=== PATIENT | male | born 1975 | race African-American/Black ===

== ENCOUNTER 2018-03-10 14:37 | Emergency (ER) | payer BC ==
[2018-03-10 14:52] VITALS: BP 146/86; PULSE 75; TEMP 97.6; BMI 30.9
[2018-03-10] MEDS ORDERED: ACETAMINOPHEN 500 MG TABLET (FP) PO ONE (14:54)
[2018-03-10] MEDS ORDERED: ACETAMINOPHEN 500 MG TABLET (FP) ONE (14:57)
[2018-03-10] MEDS ORDERED: SODIUM CHLORIDE 1,000 ML IV STA (15:04)
--- NOTE | 2018-03-10 15:16 | PDOC ---
History of Present Illness - General Chief Complaint: Cold Symptoms Stated Complaint: COLD SYMPTOMS Time Seen by Provider: 03/10/18 14:41 History Source: Patient Exam Limitations: No Limitations - History of Present Illness Initial Comments: 03/10/18 15:13 Patient is a 42M with history of allergic rhinitis here today complaining of 3 weeks of fever, bodyaches, diffuse joint pain, and headache. Patient denies chest pain and shortness of breath. He states that he had a cough last week but that resolved. Patient works outside in maintenance, but denies tick bite, rash and any other insect bite. Patient states that he was seen in urgent care and diagnosed with allergic rhinitis. Denies toothache, sore throat, enlarged lymph nodes. Past History - Past Medical History Allergies/Adverse Reactions: Allergies Allergy/AdvReac Type Severity Reaction Status Date / Time No Known Allergies Allergy Unverified 01/07/14 22:58 Home Medications: Ambulatory Orders Cetirizine HCl [Zyrtec -] 1 tab PO DAILY 03/10/18 Fluticasone Prop 0.05% Nasal [Flonase -] 1 spray IH DAILY 03/10/18 COPD: No Other medical history: DENIES - Suicide/Smoking/Psychosocial Hx Smoking History: Never smoked Have you smoked in the past 12 months: No Information on smoking cessation initiated: No Hx Alcohol Use: No Drug/Substance Use Hx: No Substance Use Type: None Review of Systems - Review of Systems Comments:: 03/10/18 15:16 GENERAL/CONSTITUTIONAL: No fever or chills. No weakness. HEAD, EYES, EARS, NOSE AND THROAT: No change in vision. No sore throat. CARDIOVASCULAR: No chest pain or shortness of breath RESPIRATORY: +cough, wheezing, or hemoptysis. GASTROINTESTINAL: No nausea, vomiting, diarrhea or constipation. GENITOURINARY: No dysuria, frequency, or change in urination. MUSCULOSKELETAL: +diffuse joint pain. No neck or back pain. SKIN: No rash NEUROLOGIC: +headache, vertigo, loss of consciousness, or change in strength/ sensation. ENDOCRINE: No increased thirst. No abnormal weight change HEMATOLOGIC/LYMPHATIC: No anemia, easy bleeding, or history of blood clots. ALLERGIC/IMMUNOLOGIC: No hives or skin allergy. *Physical Exam - Vital Signs Last Vital Signs Temp Pulse Resp BP Pulse Ox 97.6 F 75 16 146/86 100 03/10/18 14:37 03/10/18 14:37 03/10/18 14:37 03/10/18 14:37 03/10/18 14:37 - Physical Exam Comments: 03/10/18 15:16 GENERAL: Awake, alert, and fully oriented, in no acute distress HEAD: No signs of trauma, normocephalic, atraumatic EYES: PERRLA, EOMI, sclera anicteric, conjunctiva injected ENT: Auricles normal inspection, hearing grossly normal, nares patent, oropharynx clear without exudates. Moist mucosa. No tenderness oversinuses, TM/EAC clear NECK: Normal ROM, supple, no lymphadenopathy, JVD, or masses LUNGS: No distress, speaks full sentences, clear to auscultation bilaterally HEART: Regular rate and rhythm, normal S1 and S2, no murmurs, rubs or gallops, peripheral pulses normal and equal bilaterally. ABDOMEN: Soft, nontender, normoactive bowel sounds. No guarding, no rebound. No masses EXTREMITIES: Normal inspection, Normal range of motion, no edema. No clubbing or cyanosis. NEUROLOGICAL: Cranial nerves II through XII grossly intact. Normal speech, normal gait, no focal sensorimotor deficits SKIN: Warm, Dry, normal turgor, no rashes or lesions noted. ED Treatment Course - LABORATORY CBC & Chemistry Diagram: 03/10/18 15:17 03/10/18 15:17 - Medications Given in the ED: ED Medications Discontinued Medications Generic Name Dose Route Start Last Admin Trade Name Freq PRN Reason Stop Dose Admin Acetaminophen 1,000 mg 03/10/18 14:54 03/10/18 14:58 Tylenol - PO 03/10/18 14:55 1,000 mg ONCE ONE Administration Medical Decision Making - Medical Decision Making 03/10/18 15:17 Patient is 42M here today with 3 weeks of fever, bodyaches. Vital signs normal and stable. Does have outdoors exposure. DDx includes, but is not limited to: lyme, babesia, ehrlichosis, viral syndrome, mono. Will evaluate with cbc, cmp, monospot, blood smear, lyme, ehrlichosis, babesia. Will treat with tylenol and fluilds. 03/10/18 16:49 CBC shows wbc of 3.9, otherwise normal. CMP reassuring, no elevations in LFTs. Pending specialized tests. Patient feeling better after tylenol and fluids. Will discharge with ID and PCP follow up. PCP Dr Urbina. *DC/Admit/Observation/Transfer Diagnosis at time of Disposition: Fever, Body aches, Chills - Discharge Dispostion Disposition: HOME Condition at time of disposition: Good Decision to Admit order: No - Referrals Referrals: Cecily Urbina MD [Staff Physician] - - Patient Instructions Additional Instructions: Please follow up with Dr Urbina's office on Tuesday or Tuesday as a walk-in. Please return if you have any new, worsening or concerning symptoms. - Post Discharge Activity
[2018-03-10 15:30] LABS: HEMATOCRIT 49.5 % (35.4-49); HEMOGLOBIN 16.3 GM/dl (11.7-16.9); MCH 28.7 pg (25.7-33.7); MEAN CELL VOLUME 86.9 fl (80-96); MEAN PLT VOLUME 7.9 fl (7.5-11.1); PLATELET COUNT 215 K/MM3 (134-434); WHITE BLOOD COUNT 3.9 K/mm3 (4.0-10.8)
[2018-03-10 15:37] LABS: ALK PHOS 24 U/L (32-92); ANION GAP 6 MMOL/L (8-16); BILIRUBIN,TOTAL 0.7 mg/dl (0.2-1.0); BLOOD UREA NITROGEN 17 mg/dl (7-18); CALCIUM 8.8 mg/dl (8.4-10.2); CHLORIDE 105 mmol/L (98-107); CO2 28 mmol/L (22-28); GLUCOSE,RANDOM 88 mg/dl (74-106); SGOT/AST 16 U/L (10-42); SGPT/ALT 14 U/L (10-40); SODIUM 139 mmol/L (136-145); TOT PROT 6.6 g/dl (6.4-8.3)
[2018-03-13 16:22] LABS: E. chaff IgG Negative (Neg:<1:64)
== END 2018-03-10 16:55 | disposition home or self-care (01) ==
LOC: FER 14:37
PROC: 3E0337Z Introduction of Electrolytic and Water Balance Substance into Peripheral Vein, Percutaneous Approach (ICD-10-PCS; principal; 2018-03-10)
DX: R50.9 Fever, unspecified (principal); R52 Pain, unspecified
CPT/HCPCS: 36415; 80053; 85027; 86308; 86618; 86666; 87040; 87207; 99282-25; J7030